=== PATIENT | female | born 1990 ===

== ENCOUNTER 2017-04-18 21:57 | Emergency (ER) | payer MEDICAID ==
[2017-04-18 22:05] VITALS: BMI 35.2
[2017-04-18 22:24] VITALS: O2SAT 100
--- NOTE | 2017-04-18 22:29 | ED PDOC ---
Arrival/HPI - General Chief Complaint: Chest Pain Time Seen by Provider: 04/18/17 22:04 Historian: Patient - History of Present Illness Narrative History of Present Illness (Text): 04/18/17 22:28 A 26 year old female, whose past medical history includes asthma and recent dental abscess, was brought in by EMS to the emergency department complaining of shortness of breath this evening and some chest discomfort. Patient also reports feeling paresthesia to left arm and left thigh muscle discomfort.Pt. ran out of her asthma meds. Denies any history of fevers, chills, cough, back pain or any other complaints at this time. Patient is currently taking Clindamycin, not on control pill. Denies any drug use. Symptom Onset: Sudden Symptom Course: Unchanged Activities at Onset: Rest Context: Home Past Medical History - Provider Review Nursing Documentation Reviewed: Yes - Psychiatric Hx Substance Use: No Family/Social History - Physician Review Nursing Documentation Reviewed: Yes Family/Social History: No Known Family HX Smoking Status: denies Hx Alcohol Use: No Hx Substance Use: No Allergies/Home Meds Allergies/Adverse Reactions: Allergies Penicillins Allergy (Verified 04/18/17 22:01) ANAPHYLAXIS Review of Systems - Physician Review All systems were reviewed & negative as marked: Yes - Review of Systems Constitutional: absent: Fevers, Other (chills) Respiratory: SOB. absent: Cough Cardiovascular: Other (chest discomfort) Musculoskeletal: Other (paresthesia to left arm and left thigh muscle). absent : Back Pain Physical Exam Vital Signs Reviewed: Yes Vital Signs Pulse Resp BP Pulse Ox 04/19/17 00:00 65 18 126/77 100 04/18/17 22:23 58 L 23 142/87 100 Blood Pressure: Normal Pulse: Bradycardic Respiratory Rate: Normal Appearance: Positive for: Well-Appearing, Non-Toxic, Comfortable Pain Distress: None Mental Status: Positive for: Alert and Oriented X 3 - Systems Exam Head: Present: Atraumatic, Normocephalic Pupils: Present: PERRL Extroacular Muscles: Present: EOMI Conjunctiva: Present: Normal Mouth: Present: Moist Mucous Membranes Neck: Present: Normal Range of Motion Respiratory/Chest: Present: Wheezes (expiratory). No: Accessory Muscle Use Cardiovascular: Present: Regular Rate and Rhythm, Normal S1, S2. No: Murmurs Abdomen: Present: Normal Bowel Sounds. No: Tenderness, Distention, Peritoneal Signs Back: Present: Normal Inspection Upper Extremity: Present: Normal Inspection. No: Cyanosis, Edema Lower Extremity: Present: Normal Inspection. No: Edema Neurological: Present: GCS=15, CN II-XII Intact, Speech Normal Skin: Present: Warm, Dry, Normal Color. No: Rashes Psychiatric: Present: Alert, Oriented x 3, Normal Insight, Normal Concentration Medical Decision Making ED Course and Treatment: 04/18/17 22:26 Impression: A 26 year old female with shortness of breath and chest discomfort. Plan: -- EKG -- US lower extremity -- chest xray -- labs -- Reassess and disposition Progress Notes: EKG: Ordered, reviewed, and independently interpreted the EKG. Rate : 57 BPM Rhythm : sinus bradycardia Interpretation : No acute changes Comparison : No previous EKG for comparison. 04/19/17 00:03 lower extremity US was negative. 04/19/17 00:54 Chest xray: No acute process, as read by me. 04/19/17 00:56 On re-evaluation, patient feels better and is in no acute distress. I have discussed the results and plan with the patient, who expresses understanding. Patient in agreement with plan to be discharged home. Patient is stable for discharge. Patient was instructed to follow up with physician or return if symptoms worsen or new concerning symptoms arise. - Lab Interpretations Lab Results: 04/18/17 22:50 04/18/17 22:50 Lab Results 04/18/17 22:50: WBC 5.0, RBC 3.99, Hgb 11.1 L, Hct 34.9 L, MCV 87.5, MCH 27.8, MCHC 31.8, RDW 14.3, Plt Count 232, MPV 10.5 04/18/17 22:50: Sodium 143, Potassium 3.9, Chloride 108 H, Carbon Dioxide 27, Anion Gap 12, BUN 16, Creatinine 0.7, Est GFR ( Amer) > 60, Est GFR (Non- Af Amer) > 60, Random Glucose 91, Calcium 8.9, Total Bilirubin 0.4, AST 24, ALT 38, Alkaline Phosphatase 57, Lactate Dehydrogenase 377, Total Creatine Kinase 177, Troponin I < 0.01, Total Protein 6.9, Albumin 3.9, Globulin 3.0, Albumin/ Globulin Ratio 1.3 04/18/17 22:50: PT 10.9, INR 1.00, APTT 27.9, D-Dimer, Quantitative 203 I have reviewed the lab results: Yes - RAD Interpretation Radiology Orders: 04/18/17 22:22 DUPLEX LOWER EXTRM VEIN BILAT [US] Stat 04/18/17 23:25 CHEST PORTABLE [RAD] Stat - EKG Interpretation Interpreted by ED Physician: Yes Type: 12 lead EKG - Medication Orders Current Medication Orders: Discontinued Medications Albuterol/Ipratropium (Duoneb 3 Mg/0.5 Mg (3 Ml) Ud) 3 ml IH ONCE STA Stop: 04/18/17 22:42 Last Admin: 04/18/17 23:06 Dose: 3 ml Ketorolac Tromethamine (Toradol) 30 mg IVP ONCE ONE Stop: 04/19/17 00:56 - Scribe Statement The provider has reviewed the documentation as recorded by the Maldonado Greene Provider Scribe Attestation: All medical record entries made by the Scribe were at my direction and personally dictated by me. I have reviewed the chart and agree that the record accurately reflects my personal performance of the history, physical exam, medical decision making, and the department course for this patient. I have also personally directed, reviewed, and agree with the discharge instructions and disposition. Disposition/Present on Arrival - Present on Arrival Any Indicators Present on Arrival: No History of DVT/PE: No History of Uncontrolled Diabetes: No Urinary Catheter: No History of Decub. Ulcer: No History Surgical Site Infection Following: None - Disposition Have Diagnosis and Disposition been Completed?: Yes Diagnosis: Asthma, Muscle pain, Chest pain Disposition: HOME/ ROUTINE Disposition Time: 00:56 Patient Plan: Discharge Patient Problems: Current Active Problems Problem Status Onset Asthma Acute Chest pain Acute Muscle pain Acute Condition: STABLE Discharge Instructions (ExitCare): Chest Pain (ED), Asthma (ED), Musculoskeletal Pain (ED) Additional Instructions: Rest/no strenuous physical activity/take meds as prescribed/follow up with your doctor this week Prescriptions: Naproxen [Naprosyn] 500 mg PO BID PRN #14 tab PRN Reason: Pain Albuterol HFA [Ventolin HFA 90 mcg/actuation (8 g)] 2 puff IH [id number] PRN #1 puff PRN Reason: Wheezing Referrals: Dory Garcia MD [Primary Care Provider] - Follow up with primary Forms: [employer] (Vietnamese)
[2017-04-18] MEDS ORDERED: Albuterol-Ipratrop 3 mg / 0.5 (3 ml) UD IH STA (22:41)
[2017-04-18 23:03] LABS: HEMATOCRIT 34.9 % (36.0-48.0); MEAN CELL VOLUME 87.5 fl (80.0-105.0); MEAN CORPUSCULAR HEMOGLOBIN 27.8 pg (25.0-35.0); MEAN CORPUSCULAR HGB CONC 31.8 g/dl (31.0-37.0); MEAN PLATELET VOLUME 10.5 fl (7.0-11.0); RED CELL DISTRIBUTION WIDTH 14.3 % (11.5-14.5)
[2017-04-18 23:14] LABS: ALB/GLOB RATIO 1.3 (1.1-1.8); ALKALINE PHOSPHATASE 57 U/L (38-126); ALT/SGPT 38 U/L (7-56); AST/SGOT 24 U/L (14-36); BILIRUBIN,TOTAL 0.4 mg/dL (0.2-1.3); BLOOD UREA NITROGEN 16 mg/dL (7-21); CALCIUM 8.9 mg/dL (8.4-10.5); CARBON DIOXIDE 27 mmol/L (21-33); CHLORIDE 108 mmol/L (98-107); GFR AFRICAN-AMERICAN > 60; GLUCOSE,RANDOM 91 mg/dL (70-110); POTASSIUM 3.9 mmol/L (3.6-5.0); SODIUM 143 mmol/L (132-148); TOTAL PROTEIN 6.9 g/dL (5.8-8.3)
[2017-04-18 23:17] LABS: PARTIAL THROMBOPLASTIN TIME 27.9 Seconds (25.1-36.5)
[2017-04-18 23:21] LABS: TROPONIN I < 0.01 ng/mL
[2017-04-19 01:58] VITALS: BP 121/82; PULSE 63; RESP 20
--- NOTE | 2017-04-19 10:41 | RAD ---
HISTORY: sob COMPARISON: No prior. FINDINGS: LUNGS: No active pulmonary disease. PLEURA: No significant pleural effusion identified, no pneumothorax apparent. CARDIOVASCULAR: Normal. OSSEOUS STRUCTURES: No significant abnormalities. VISUALIZED UPPER ABDOMEN: Normal. OTHER FINDINGS: None. IMPRESSION: No active disease.
--- NOTE | 2017-04-19 12:40 | US ---
HISTORY: Leg pain and swelling. Evaluate for DVT PHYSICIAN(S): Derrek Begum MD. TECHNIQUE: Duplex sonography and color-flow Doppler with graded compression were used to evaluate the deep venous systems of both lower extremities. FINDINGS: The visualized deep venous systems of both lower extremities are sonographically normal and compressible. Normal wave forms and augmentation are seen. There is no sonographic evidence for deep venous thrombosis in the visualized segments of both lower extremities. IMPRESSION: No sonographic evidence for deep venous thrombosis in the visualized segments of both lower extremities.
--- NOTE | 2017-04-19 17:17 | CARD ---
APPROVED REPORT EKG Measurement Heart [id number] <Conclusion> Sinus bradycardia Otherwise normal ECG
== END 2017-04-19 02:04 | disposition home or self-care (01) ==
LOC: MERGE 21:57 → ED 21:57
DX: J45.909 Unspecified asthma, uncomplicated (principal); M79.1 Myalgia; R07.9 Chest pain, unspecified; Z88.0 Allergy status to penicillin
CPT/HCPCS: 71010; 80053; 82550; 83615; 84484; 85027; 85378; 85610; 85730; 93005; 93970; 96374; 99285; J1885